=== PATIENT | female | born 1965 | race Caucasian/White ===

== ENCOUNTER 2021-04-11 01:16 | Emergency (ER) | payer MEDICAID ==
[~2021-04-11] VITALS: Ht 177.8 cm; Wt 58.9 kg
[2021-04-11 02:24] LABS: BASOPHILS % (AUTO) 1 % (0-1); EOSINOPHILS % (AUTO) 0 % (1-7); LYMPHOCYTES % (AUTO) 19 % (22-44); MEAN CORPUSCULAR HEMOGLOBIN 31.1 pg (27.0-34.8); MEAN CORPUSCULAR HGB CONC 33.1 g/dL (32.4-35.8); MEAN PLATELET VOLUME 8.7 fL (7.4-10.4); MONOCYTES % (AUTO) 6 % (2-9); NEUTROPHILS % (AUTO) 75 % (42-75); PLATELET COUNT 197 x10^3/uL (130-400); RED BLOOD COUNT 4.56 x10^6/uL (3.82-5.3); RED CELL DISTRIBUTION WIDTH 14.7 % (9.6-15.2)
[2021-04-11 02:31] LABS: ALBUMIN 3.7 g/dL (3.4-5.0); ANION GAP 22 mmol/L (5-15); CALCIUM 9.5 mg/dL (8.5-10.1); CHLORIDE 92 mmol/L (98-107)
[2021-04-11 02:35] LABS: ALANINE AMINOTRANSFERASE 98 U/L (12-78); ALKALINE PHOSPHATASE 143 U/L (45-117); BILIRUBIN,TOTAL 0.9 mg/dL (0.2-1.0); TOTAL PROTEIN 7.4 g/dL (6.4-8.2)
--- NOTE | 2021-04-11 04:03 | NUR ---
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
[2021-04-11] MEDS ORDERED: LORazepam 2 MG/ML, 1ML ONE (04:40)
[2021-04-11] MEDS ORDERED: ONDANSETRON 2MG/ML, 2ML ONE (04:40)
[2021-04-11] MEDS ORDERED: LORazepam 2 MG/ML, 1ML IVPush ONE (05:00)
[2021-04-11] MEDS ORDERED: SODIUM CHLORIDE 0.9% 1,000ML IVBOLUS ONE (05:00)
[2021-04-11] MEDS ORDERED: ONDANSETRON 2MG/ML, 2ML IVPush ONE (05:00)
[2021-04-11] MEDS ORDERED: PROMETHAZINE 25 MG/ML, 1ML ONE (05:38)
[2021-04-11 05:56] VITALS: BP 128/67
[2021-04-11] MEDS ORDERED: PROMETHAZINE 25 MG/ML, 1ML IM ONE (06:00)
== END 2021-04-11 06:29 | disposition home or self-care (01) ==
LOC: ED 05:19
DX: R11.2 Nausea with vomiting, unspecified (principal); F10.139 Alcohol abuse with withdrawal, unspecified; F41.9 Anxiety disorder, unspecified; R45.4 Irritability and anger; R00.0 Tachycardia, unspecified; Y90.0 Blood alcohol level of less than 20 mg/100 ml
CPT/HCPCS: 36415; 80053; 83690; 85025; 96361; 96372; 96374; 96375; 99284; J2060; J2405; J2550; J7030